=== PATIENT | male | born 1975 | race Caucasian/White ===

== ENCOUNTER 2017-02-28 19:40 | Emergency (ER) | payer BC ==
[2017-02-28 19:58] VITALS: BP 158/87
--- NOTE | 2017-02-28 20:24 | UC ---
Knee Pain HPI - HPI Summary HPI Summary: 42 yo male with a >1 month hx of bilat large joint pain knees/hips/shoulders pain much worse in AM he has started sleeping down stairs because in the AMs he can not navigate stairs his right knee is the worse hx right tibial plateau fx his knee has been swollen - History of Current Complaint Chief Complaint: UCGeneralIllness Stated Complaint: JOINT PAIN Time Seen by Provider: 02/28/17 19:47 Hx Obtained From: Patient Onset/Duration: Gradual Onset, Lasting Weeks Severity Initially: Mild Severity Currently: Severe Pain Intensity: 8 Pain Scale Used: 0-10 Numeric Character: Dull, Aching, Stiffness Aggravating Factor(s): Movement, Weight Bearing Alleviating Factor(s): Rest Associated Signs And Symptoms: Positive: Swelling Able to Bear Weight: Yes - Allergies/Home Medications Allergies/Adverse Reactions: Allergies Allergy/AdvReac Type Severity Reaction Status Date / Time Codeine Allergy Headache Verified 02/28/17 19:49 Home Medications: Home Medications Oxycodone TAB(NF) [Oxycodone HCl 10 MG] 1 tab PO ONCE PRN 02/28/17 [History Confirmed 02/28/17] PMH/Surg Hx/FS Hx/Imm Hx Previously Healthy: Yes - Surgical History Surgical History: Yes Surgery Procedure, Year, and Place: right knee surgery March 2012 - Family History Known Family History: Positive: Hypertension, Other - STRONG FHx OF RA - Social History Alcohol Use: Weekly Substance Use Type: None Smoking Status (MU): Heavy Every Day Tobacco Smoker Type: Cigarettes, Smokeless Tobacco Amount Used/How Often: 1 PPD Household Exposure Type: Cigarettes Review of Systems Constitutional: Fatigue Skin: Negative Eyes: Negative ENT: Negative Respiratory: Negative Cardiovascular: Negative Gastrointestinal: Negative Genitourinary: Negative Motor: Negative Neurovascular: Negative Musculoskeletal: Arthralgia Neurological: Negative Psychological: Negative All Other Systems Reviewed And Are Negative: Yes Physical Exam Triage Information Reviewed: Yes Appearance: Well-Appearing, No Pain Distress, Well-Nourished Vital Signs: Initial Vital Signs Temp 98.4 F 02/28/17 19:50 Pulse 75 02/28/17 19:50 Resp 18 02/28/17 19:50 BP 158/87 02/28/17 19:50 Pulse Ox 98 02/28/17 19:50 Vital Signs Reviewed: Yes Eyes: Positive: Conjunctiva Clear ENT: Positive: Hearing grossly normal. Negative: Nasal congestion, Nasal drainage, Trismus Neck: Positive: Supple, Nontender, No Lymphadenopathy Respiratory: Positive: Lungs clear, Normal breath sounds, No respiratory distress, No accessory muscle use Cardiovascular: Positive: RRR, No Murmur, Pulses Normal Musculoskeletal: Positive: Other: - RIGHT KNEE SWOLLEN NOT RED ANTALGIC GAIT Neurological: Positive: Alert Psychological Exam: Normal Skin Exam: Normal Knee Pain Course/Dx - Differential Dx/Diagnosis Provider Diagnoses: poly arthritis. ? RA Discharge - Discharge Plan Condition: Stable Disposition: HOME Patient Education Materials: Arthritis (ED) Referrals: Servando Marquez MD [Primary Care Provider] - As Soon As Possible Additional Instructions: blood work pending I am concerned you may have RA
[2017-02-28] MEDS ORDERED: Naproxen TAB* 250 MG PO ONE ×2 (20:44→20:45)
[2017-02-28] MEDS ORDERED: HYDROcodone/ACETAMIN 5-325 MG* 1 TAB PO ONE (20:46)
--- NOTE | 2017-02-28 20:47 | RAD ---
Indication: Right Knee pain. 4 views of the right knee demonstrates no fracture. Chondrocalcinosis is noted. There is prior postoperative changes in the medial tibial plateau. Joint effusion is noted. IMPRESSION: Postoperative changes with a joint effusion. No definite fracture is noted.
[2017-03-01 13:43] LABS: Hematocrit 43 % (42-52); Hemoglobin 13.9 g/dl (14.0-18.0); Mean Corpuscular HGB Conc 32 g/dl (31-36); Mean Corpuscular Hemoglobin 29 pg (27-31); Mean Corpuscular Volume 90 fL (80-94); Mean Platelet Volume 9 um3 (7.4-10.4); Red Blood Count 4.78 10^6/ul (4.0-5.4); Red Cell Distribution Width 13 % (10.5-15); White Blood Count 12.3 10^3/ul (3.5-10.8)
[2017-03-01 14:27] LABS: Erythrocyte Sed Rate 29 mm/Hr (0-14)
== END 2017-02-28 21:05 | disposition home or self-care (01) ==
LOC: UCCORT 19:40
DX: M13.0 Polyarthritis, unspecified (principal); F17.210 Nicotine dependence, cigarettes, uncomplicated
CPT/HCPCS: 36415; 85025; 85652; 86038; 86618; 99203; A9270-GY; G0463

== ENCOUNTER 2018-12-28 12:53 | Emergency (ER) | payer BC, OTHER ==
[2018-12-28 13:26] VITALS: BP 157/74
--- NOTE | 2018-12-28 13:47 | UC ---
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 THe other day it locked up on him. Wearing the brace helps. He had screws placed in 2003 due to tibeal plateau fracture- screws has since been removed. No has dull, numbing , pulsating pain at site of screws on medial side. Worse with movement - can barely flex it. Meds: reviewed Concerned about a clot in his leg because he has ongoing heart flutters that has been going on for years. No recent event. Had neck stiffness with heart fluttering a while ago. Denies any long car trips, no airplane rides and has not been sedentary. STates he has RA but is in remission and not on any medications Used to be seen by Dr. Gomez in [place] - History of Current Complaint Chief Complaint: UCLowerExtremity Stated Complaint: RT KNEE INJURY Time Seen by Provider: 12/28/18 13:37 Pain Intensity: 3 - Allergy/Home Medications Allergies/Adverse Reactions: Allergies Allergy/AdvReac Type Severity Reaction Status Date / Time codeine Allergy Headache Verified 12/28/18 13:27 PMH/Surg Hx/FS Hx/Imm Hx Previously Healthy: Yes - Surgical History Surgical History: Yes Surgery Procedure, Year, and Place: right knee surgery March 2012 - Family History Known Family History: Positive: Hypertension, Other - STRONG FHx OF RA - Social History Alcohol Use: Weekly Substance Use Type: None Smoking Status (MU): Heavy Every Day Tobacco Smoker Type: Cigarettes, Smokeless Tobacco Amount Used/How Often: 1 PPD Household Exposure Type: Cigarettes Review of Systems All Other Systems Reviewed And Are Negative: Yes Musculoskeletal: Positive: Other: - right knee pain Physical Exam Triage Information Reviewed: Yes Appearance: Well-Appearing Vital Signs: Initial Vital Signs Temp 98.8 F 12/28/18 13:13 Pulse 85 12/28/18 13:13 Resp 16 12/28/18 13:13 BP 157/74 12/28/18 13:13 Pulse Ox 96 12/28/18 13:13 Neck: Positive: Supple Respiratory: Positive: Lungs clear, Other: - diminished breath sounds Cardiovascular: Positive: RRR, Other: - soft systolic murmur Musculoskeletal: Positive: Other: - right knee effusion. NO erythema or warmth. Pain with flexion. Pinpoint tenderness over medial knee joint. 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 No risk factors. Right knee effusion and sprain Plan Weight bearing as tolerated Continue with knee immobilizer Rest, Elevate, ice and naproxen 500 mg 2x/day -take with food Also recommend tylenol 650 mg every 6 hours while you have pain - then as needed You have an apt with Dr. Wright tomorr [address] [place] [address] [phone] at 1:30 pm Keep leg elevated, ice and rest Recommend follow up with your PCP to recheck your blood pressure and discontinue smoking - Diagnoses Provider Diagnosis: Knee sprain, Knee effusion, right Discharge - Sign-Out/Discharge Documenting (check all that apply): Patient Departure All imaging exams completed and their final reports reviewed: Yes - Discharge Plan Condition: Stable Disposition: HOME Prescriptions: Naproxen [Naproxen 500 mg tab] 500 mg PO BID #60 tablet. Patient Education Materials: Swollen Knee Joint (ED), Knee Sprain (ED) Referrals: Servando Marquez MD [Primary Care Provider] - Additional Instructions: Weight bearing as tolerated Continue with knee immobilizer Rest, Elevate, ice and naproxen 500 mg 2x/day -take with food Also recommend tylenol 650 mg every 6 hours while you have pain - then as needed You have an apt with Dr. Wright orr [address] [place] [address] [phone] at 1:30 pm Keep leg elevated, ice and rest Recommend follow up with your PCP to recheck your blood pressure and discontinue smoking - Billing Disposition and Condition Condition: STABLE Disposition: Home
== END 2018-12-28 14:47 | disposition home or self-care (01) ==
LOC: UCCORT 12:53
DX: S83.91XA Sprain of unspecified site of right knee, initial encounter (principal); X50.1XXA Overexertion from prolonged static or awkward postures, initial encounter; Y92.89 Other specified places as the place of occurrence of the external cause; M25.461 Effusion, right knee; F17.210 Nicotine dependence, cigarettes, uncomplicated; Z88.5 Allergy status to narcotic agent
CPT/HCPCS: 99212; G0463